=== PATIENT | male | born 1970 | race African-American/Black ===

== ENCOUNTER 2016-11-09 18:02 | Emergency (ER) | payer OTHER ==
[~2016-11-09] VITALS: Ht 182.9 cm; Wt 86.6 kg
[~2016-11-09 18:02] MED LIST: ASPIRIN CHILDRE81 MG PO; LIPITOR10 M1 PO; LOTREL 10-20 M1 EACH PO
--- NOTE | 2016-11-09 20:49 | ED HAND/WRIST INJURY COMPLAINT ---
History of Present Illness General Chief Complaint: Laceration Procedure Stated Complaint: LAC TO FINGER Source: patient Exam Limitations: no limitations Vital Signs & Intake/Output Vital Signs & Intake/Output Vital Signs Date Time Temp Pulse Resp B/P Pulse O2 O2 Flow FiO2 Ox Delivery Rate 11/09 1823 97.3 89 20 142/90 98 Room Air Allergies Coded Allergies: NO KNOWN ALLERGIES (NKA) (01/30/11) Reconcile Medications Amlodipine Besylate/Benazepril (Lotrel 10-20 MG Capsule) 10 MG-20 MG CAPSULE 1 CAP PO DAILY BP (Reported) Atorvastatin Calcium (Lipitor) 10 MG TABLET 1 TAB PO DAILY CHOLESTEROL ( Reported) Triage Note: PT TO ED C/O LAC TO RIGHT INDEX FINGER FROM A POWER TOOL. UNKNOWN LAST TETANUS SHOT. HAPPENED AROUND 1630 TODAY. DRESSING APPLIED PRIOR TO TRIAGE. Triage Nurses Notes Reviewed? yes HPI: Patient is a 46-year-old male presents complaining of laceration to his right index finger. Patient was cleaning a power drill machine when the bit struck against his right index finger. Injury occurred this afternoon. Pain is a throbbing pain currently mild, worse with palpation. Patient is right-hand dominant. Patient believes that he is up-to-date with his tetanus immunization. Patient denies decreased range of motion, numbness. (BLAIR NIETO) Past History Travel History Traveled to [place] past 21 day No Medical History Any Pertinent Medical History? see below for history Cardiovascular: hypertension, hyperlipidemia Surgical History Surgical History: non-contributory Psychosocial History What is your primary language Chinese Tobacco Use: Never used ETOH Use: denies use Illicit Drug Use: denies illicit drug use Family History Hx Contributory? No (BLAIR NIETO) Review of Systems Review of Systems Constitutional: Reports: no symptoms. Cardiovascular: Denies: chest pain. GI: Denies: abdominal pain. Musculoskeletal: Reports: see HPI. Skin: Reports: see HPI. Neurological/Psychological: Denies: numbness, paresthesia. Hematologic/Endocrine: Reports: bleeding (from wound). Immunologic/Allergic: Reports: no symptoms. (BLAIR NIETO) Physical Exam Physical Exam General Appearance: well developed/nourished, alert, awake Head: atraumatic, normal appearance Eyes: Bilateral: normal appearance. Ears, Nose, Throat: hearing grossly normal Neck: normal inspection Cardiovascular/Respiratory: no respiratory distress Back: normal inspection, normal range of motion Hand Left: normal inspection, normal range of motion Hand Right: 2.5 cm irregular flap laceration to the right index finger, volar surface, distal phalanx. Full range of motion. Capillary refill normal. Sensation and motor function normal. No visible or functional tendon deficit. Neurologic/Tendon: normal sensation, normal motor functions, normal tendon functions Skin: warm/dry (BLAIR NIETO) Progress Differential Diagnosis: laceration, fracture, tendon laceration, foreign body Plan of Care: Current Medications Sig/Hernandez Start time Last Medication Dose Stop Time Status Admin Lidocaine 20 ML ONCE ONE 11/09 2099 UNVr (Lidocaine 1%) 11/09 2100 Departure Departure Time of Disposition: 2140 Disposition: HOME OR SELF CARE Condition: Stable Clinical Impression Primary Impression: Finger laceration Qualifiers: Encounter type: initial encounter Qualified Code: S61.219A - Laceration without foreign body of unspecified finger without damage to nail, initial encounter Referrals: UNKNOWN (PCP) Additional Instructions: Keep the wound clean. Bacitracin and a clean dressing for the first 3 days. After 3 days switch to a clean dressing daily. Return to the emergency department in 10 days for suture removal. Return immediately if pus from the wound, redness spreading from the wound, fevers, increasing pain, or worsening of symptoms. Departure Forms: Customer Survey General Discharge Information (BLAIR NIETO) PA/ALL SOURCE COLLECTION MANAGER Co-Sign Statement Statement: ED Attending supervision documentation- [] I saw and evaluated the patient. I have also reviewed all the pertinent lab results and diagnostic results. I agree with the findings and the plan of care as documented in the PA's/ALL SOURCE COLLECTION MANAGER's documentation. [X] I have reviewed the ED Record and agree with the PA's/ALL SOURCE COLLECTION MANAGER's documentation. [] Additions or exceptions (if any) to the PAs/ALL SOURCE COLLECTION MANAGER's note and plan are summarized below: [] (MAIKEL BHATTI,TEJAS Lynn) Procedures Laceration/Wound Repair Laceration/Wound Repair: Wound Location: right index finger volar surface over the distal phalanx. Wound's Depth, Shape: flap, irregular Wound Length (cm): 2.5 Wound Explored: clean Irrigated w/ Saline (ccs): 400 Betadine Prep? Yes Anesthesia: digit block, 1% lidocaine Suture Size/Type: 5:0, nylon Number of Sutures: 7 (EDIL QUESADA,BLAIR)
[2016-11-09 21:43] VITALS: BP 144/88
== END 2016-11-09 21:54 ==
LOC: ERH 18:02
DX: S61.210A Laceration without foreign body of right index finger without damage to nail, initial encounter (principal); W29.8XXA Contact with other powered hand tools and household machinery, initial encounter

== ENCOUNTER 2016-11-19 16:20 | Emergency (ER) | payer OTHER ==
[2016-11-19 17:14] VITALS: BP 142/79
--- NOTE | 2016-11-19 18:10 | ED GENERAL ADULT ---
History of Present Illness General Chief Complaint: Suture Removal/Wound Recheck Stated Complaint: SUTURE REMOVAL Source: patient Exam Limitations: no limitations Vital Signs & Intake/Output Vital Signs & Intake/Output Vital Signs Date Time Temp Pulse Resp B/P Pulse O2 O2 Flow FiO2 Ox Delivery Rate 11/19 1714 97.4 75 18 142/79 98 Room Air Allergies Coded Allergies: NO KNOWN ALLERGIES (NKA) (01/30/11) Reconcile Medications Amlodipine Besylate/Benazepril (Lotrel 10-20 MG Capsule) 10 MG-20 MG CAPSULE 1 CAP PO DAILY BP (Reported) Atorvastatin Calcium (Lipitor) 10 MG TABLET 1 TAB PO DAILY CHOLESTEROL ( Reported) Triage Note: PT TO TRIAGE FOR SUTURE REMOVAL TO R INDEX FINGER. SUTURES WERE PLACE HERE IN [facility] 10 DAYS AGO[address] DRESSING IN PLACE. Triage Nurses Notes Reviewed? yes HPI: SUTUTRE REMOVAL RIGHT INDEX FINGER Past History Travel History Traveled to [place] past 21 day No Medical History Any Pertinent Medical History? see below for history Cardiovascular: hypertension, hyperlipidemia Surgical History Surgical History: non-contributory Psychosocial History What is your primary language Divehi Tobacco Use: Never used Family History Hx Contributory? No Review of Systems Review of Systems Constitutional: Denies: fever. EENTM: Reports: no symptoms. Respiratory: Reports: no symptoms. Cardiovascular: Reports: no symptoms. GI: Reports: no symptoms. Genitourinary: Reports: no symptoms. Musculoskeletal: Reports: no symptoms. Skin: Reports: see HPI. Neurological/Psychological: Reports: no symptoms. Hematologic/Endocrine: Reports: no symptoms. Immunologic/Allergic: Reports: no symptoms. Physical Exam Physical Exam General Appearance: well developed/nourished, alert, awake, anxious Head: atraumatic, normal appearance Eyes: Bilateral: normal appearance, PERRL, EOMI. Ears, Nose, Throat: normal ENT inspection Neck: full range of motion Respiratory: no respiratory distress Peripheral Pulses: 4+ radial (R) Extremities: laceration partial avulsion to the right index finger, that was sutured flexor digitorum profundus and flexor digitorum superficialis are intact in the right index finger Neurologic/Psych: no motor/sensory deficits, awake, alert, oriented x 3 Skin: intact, normal color, warm/dry, sutured wound right index finger Core Measures ACS in differential dx? No CVA/TIA Diagnosis: No Severe Sepsis Present: No Septic Shock Present: No Progress Differential Diagnoses I considered the following diagnoses in my evaluation of the patient: [Tendon injury, foreign body, wound infection] Plan of Care: Follow-up as needed Initial ED EKG: none Departure Departure Disposition: HOME OR SELF CARE Condition: Stable Clinical Impression Primary Impression: Visit for suture removal Referrals: UNKNOWN (PCP) Departure Forms: Customer Survey General Discharge Information Comments procedure The sutures were removed from the right index finger without complication. Bacitracin and a Band-Aid was applied. Critical Care Note Critical Care Note Critical Care Time: non-applicable
== END 2016-11-19 17:17 ==
LOC: ERH 16:20
DX: S61.210A Laceration without foreign body of right index finger without damage to nail, initial encounter (principal); X58.XXXA Exposure to other specified factors, initial encounter
CPT/HCPCS: 99281